=== PATIENT | male | born 1980 | race Caucasian/White ===

== ENCOUNTER 2022-04-07 15:06 | Emergency (ER) | payer OTHER, SELFPAY ==
[2022-04-07 15:07] VITALS: BP 141/105; PULSE 70; RESP 15; TEMP 36.4; O2SAT 93; BMI 25.8
--- NOTE | 2022-04-07 15:34 | CT_ITS ---
STUDY: CT ABDOMEN AND PELVIS WITHOUT CONTRAST ENHANCEMENT 1557 HOURS ON 04/07/2022 REASON FOR EXAM: 41-year-old male with symptomatology of a kidney stone. RADIATION DOSAGE (If Supplied By Facility): CTDIvol = ( 6.04 ) mGy, DLP = ( 321.66 ) mGycm TECHNIQUE: Transaxial images were obtained from the dome of the diaphragm to the symphysis pubis without oral contrast, and without intravenous contrast. Sagittal and coronal images were reconstructed. COMPARISON: None. FINDINGS: The visualized lung bases are unremarkable. The visualized portions of the heart are within normal limits. Normal liver. Normal gallbladder and extrahepatic biliary system; no cholelithiasis or cholecystitis.. Normal spleen. Normal pancreas; no pancreatitis or pancreatic mass lesions.. Normal bilateral adrenal glands. Normal left kidney without hydronephrosis or pyelonephritis. Normal size right kidney with mild right hydronephrosis and mild right hydroureter to the level of a 3 mm diameter calculus in the mid right ureter. No other renal calcification or calculi, or cystic or solid mass lesions. Normal visualized stomach. Normal small intestine. No diverticulitis, colitis, intestinal obstruction. The appendix is visualized and appears normal; no appendicitis.. Normal abdominal aorta. Normal inferior vena cava. Normal retroperitoneum. Partially empty bladder with mild circumferential bladder wall thickening secondary to a 4.9 cm in diameter heterogeneous prostate. Normal abdominal wall. Normal osseous structures. CT/Abdomen/Pelvis without Cont IMPRESSION: 1. Presence of a 3 mm diameter calculus in the mid right ureter with a mild right hydronephrosis and mild proximal right hydroureter. 2. Otherwise, normal kidneys without other calcifications or calculi or cystic or solid mass lesions. 3. Partially empty bladder with mild circumferential bladder wall thickening secondary to a 4.9 cm diameter heterogeneous prostate. 4. Normal liver, spleen, gallbladder, biliary system, and pancreas. 5. No appendicitis, diverticulitis, colitis, or intestinal obstruction. Electronically Signed: Jorge Ramos MD at 17:15 EDT ,
--- NOTE | 2022-04-07 15:35 | EX.ED.DYSGE1 ---
HPI History of Present Illness Chief Complaint: Abd Pain Informant: patient and spouse/S.O. Onset/Context/Timing Onset: Today Narrative Narrative: Sudden right flank pain going through to his abdomen 30 minutes prior to arrival. At a picnic when symptoms started. Nausea vomiting x2. No urinary symptoms. No history of kidney stones. No past medical history. Denies any allergies. Denies history of gastric ulcers or kidney injury. Prior similar symptoms: No PFSH PFSH Medical History no medical history Home Medications cephalexin 500 mg capsule 500 mg PO Q12 #14 caps 04/07/22 [Rx Last Taken Unknown] ibuprofen 600 mg tablet 600 mg PO 4X/DAY PRN Pain Or Fever #20 tabs 04/07/22 [Rx Last Taken Unknown] ondansetron 4 mg disintegrating tablet 4 mg PO Q6H PRN nausea and vomiting #10 tabs 04/07/22 [Rx Last Taken Unknown] oxycodone-acetaminophen 5 mg-325 mg tablet (Percocet) 1 tab PO Q6H PRN pain 3 days #12 tabs 04/07/22 [Rx Last Taken Unknown] Allergy/AdvReac Type Severity Reaction Status Date / Time No Known Allergies Allergy Verified 04/07/22 15:09 Surgical History no surgical history Social History Smoking Status: Never smoker ROS ROS ED Constitutional Constitutional ED: Denies chills, fever(s) or sweats Eyes Eyes: Denies change in vision ENT ENT ED: Denies dysphagia or sore throat Cardiovascular Cardiovascular: Denies chest pain, leg edema, palpitations or racing heartbeat Respiratory/Chest Respiratory/Chest: Denies cough, dyspnea or dyspnea on exertion Gastrointestinal Gastrointestinal: Reports abdominal pain, nausea and vomiting; Denies diarrhea Genitourinary Genitourinary ED: Denies dysuria, hematuria or urinary frequency Musculoskeletal Musculoskeletal: Reports back pain; Denies extremity pain or neck pain Integumentary Denies rash or wounds Neurologic Neurologic: Denies headache(s), paresthesias or weakness EXAM Physical Exam Const Vital Signs: 04/07/22 15:07 04/07/22 17:07 04/07/22 19:19 Temperature 97.6 F L 98.9 F Temperature Source Temporal Pulse Rate 70 66 81 Respiratory Rate 15 18 16 Blood Pressure 141/105 H 145/78 H 134/78 H Blood Pressure Mean 117 100 Pulse Ox 93 97 99 Oxygen Delivery Method Room Air Room Air Positive well nourished and well developed Constitutional Narrative: Uncomfortable laying on left side of the bed but nontoxic General Appearance ED: well developed HEENT Reports moist mucous membranes normocephalic and atraumatic Eyes PERRL, EOMs intact bilaterally and conjunctivae normal General Eye ED: Yes normal appearance of both eyes Neck no lymphadenopathy and supple General: Negative for tenderness Chest Wall Chest: Negative for tenderness Resp normal respiratory effort and normal air movement Effort and Inspection: symmetric chest movement; Negative for respiratory distress Cardio regular rate, regular rhythm and no murmurs Peripheral Pulses: pulses 2+ throughout GI normal to inspection, nondistended, normoactive bowel sounds and non-tender GI Narrative: No guarding or rebound negative Larose's or McBurney's tenderness. Palpation: Negative for guarding or rebound tenderness present Back/Spine no CVA tenderness and no thoracic nor lumbar tenderness Back/Spine Narrative: No rash Extremity normal to inspection General Extremety ED: Negative for edema or tenderness General Extremity: Negative for edema Neuro oriented x3 and no sensory deficits noted Sensorium / Orientation: awake and alert Skin no rashes or lesions noted and no wounds MDM MDM MDM Narrative Medical decision making narrative: Patient uncomfortable laying on side presenting concerns for colic symptoms. Renal stone protocol initiated. He is ordered for Zofran Toradol morphine along with IV fluids. Required multiple doses of pain medicines. After additional morphine and Dilaudid his symptoms were more controlled. Work-up initiated noted 3 mm right mid ureteral stone with hydronephrosis. Creatinine 1.38. Urine noted blood noted 25 leukocytes and 5-10 WBCs with 1+ bacteria had no urinary symptoms. However he does have a history of obstructive stone. Urine culture sent he is given Rocephin. He required additional dose of Dilaudid which took his pain down to 0. I spoke with on-call urologist Dr. Carmichael, discussed with him findings. Recommended prescription for pain medicines along with antibiotics and follow-up with him in the office on Saturday. Strict return precautions discussed. Urine strainer sent home with patient. Meds to bed provided for patient. He remained more comfortable. Patient spouse agrees with plan of care. Lab Data Attestation: I reviewed the patient's lab results. Labs: Laboratory Results - last 24 hr 04/07/22 04/07/22 04/07/22 15:30 15:30 17:05 WBC 6.6 RBC 5.34 Hgb 15.6 Hct 46.8 MCV 87.6 MCH 29.2 MCHC 33.3 RDW Std Deviation 40.6 RDW Coeff of Yenni 12.7 Plt Count 248 MPV 10.6 Immature Gran % (Auto) 0.200 Neut % (Auto) 50.3 Lymph % (Auto) 35.4 [place] % (Auto) 8.9 Eos % (Auto) 4.1 Baso % (Auto) 1.1 H Absolute Neuts (auto) 3.3 Absolute Lymphs (auto) 2.32 Nucleated RBC % 0 Sodium 139 Potassium 3.5 Chloride 107 Carbon Dioxide 28.0 Anion Gap 4 L BUN 19 H Creatinine 1.38 H Estim Creat Clear Calc 65.20 Est GFR (MDRD) Af Amer 73 Est GFR (MDRD) Non-Af 60 BUN/Creatinine Ratio 13.8 Glucose 103 Calcium 9.2 Urine Color Yellow Urine Clarity Cloudy Urine pH 6.0 Ur Specific [place] 1.025 Urine Protein 100 H Urine Glucose (UA) Normal Urine Ketones 50 H Urine Occult Blood 250 H Urine Nitrite Negative Urine Bilirubin Negative Urine Urobilinogen 1 H Ur Leukocyte Esterase 25 H Urine RBC > 100 SEEN Urine WBC 5-10 SEEN Ur Squamous Epith Cells 0-5 SEEN Urine Bacteria 1+ Urine Mucus 3+ Radiography Diagnostic Testing: Clinical Impression(s) from Imaging Studies Abdomen/Pelvis CT 04/07/22 15:34 IMPRESSION: 1. Presence of a 3 mm diameter calculus in the mid right ureter with a mild right hydronephrosis and mild proximal right hydroureter. 2. Otherwise, normal kidneys without other calcifications or calculi or cystic or solid mass lesions. 3. Partially empty bladder with mild circumferential bladder wall thickening secondary to a 4.9 cm diameter heterogeneous prostate. 4. Normal liver, spleen, gallbladder, biliary system, and pancreas. 5. No appendicitis, diverticulitis, colitis, or intestinal obstruction. Electronically Signed: Jorge Ramso MD at 17:15 EDT , Discharge Plan Triage Chief Complaint: Abd Pain ED Provider: Guanako Zhu Dx/Rx/DC Orders Clinical Impression: Kidney stone on right side, Acute UTI, Hematuria, Renal colic on right side Instructions: Understanding Kidney Stones, ED Kidney Stone w/ Colic Prescriptions: New oxycodone-acetaminophen [Percocet] 5-325 mg tablet 1 tab PO Q6H PRN (Reason: pain) 3 Days Qty: 12 0RF cephalexin [cephalexin] 500 mg capsule 500 mg PO Q12 Qty: 14 0RF ibuprofen 600 mg tablet 600 mg PO 4X/DAY PRN (Reason: Pain Or Fever) Qty: 20 0RF ondansetron 4 mg tablet,disintegrating 4 mg PO Q6H PRN (Reason: nausea and vomiting) Qty: 10 0RF Primary Care Provider: Care Physician,No Primary Referrals: Eriberto Carmichael MD [Med Staff - Active Staff] - 2 Days Care Physician,No Primary [Primary Care Provider] - Activity Restrictions/Additional Instructions: 3 mm mid ureteral stone on the right side. Urine with mild infection culture sent take antibiotic as prescribed. Take nausea and pain medicines as needed. Return if any worsening symptoms otherwise follow-up with Dr. Carmichael on saturday. Strain your urine. Disposition Disposition: Home, Self Care Discharge Date/Time: 04/07/22 19:56
[2022-04-07] MEDS: Ondansetron 4 MG/2 ML Vial IV (15:39)
[2022-04-07] MEDS: Morphine 4 MG/ML Syringe IV ×2 (15:39→16:24)
[2022-04-07] MEDS: Ketorolac 15 MG/ML Vial IV (15:40)
[2022-04-07] MEDS: 0.9% Normal Saline 1,000 ML 250 ML IV (15:41)
[2022-04-07 15:55] LABS: Absolute Lymphocyte Count 2.32 X10^3/uL (0.83-4.51); Absolute Neutrophil Count 3.3 X10^3/uL (2.0-7.7); Basophil# 0.07 X10^3/uL; Basophil% 1.1 % (0-1); Eosinophil# 0.27 X10^3/uL; Eosinophils% 4.1 % (0-5); Hematocrit 46.8 % (40-54); Hemoglobin 15.6 g/dL (13.0-16.5); Lymphocyte # 2.32 X10^3/ul (0.83-4.51); Lymphocyte % 35.4 % (19-41); Mean Corp Hgb Conc 33.3 g/dL (32-36); Mean Corpuscular Hgb 29.2 pg (27.0-32.0); Mean Corpuscular Volume 87.6 fL (80-94); Mean Platelet Vol. 10.6 fl (6.2-12.0); Monocyte# 0.58 X10^3/uL; Monocyte% 8.9 % (0-10); NRBC Flagged by Analyzer 0 % (0-5); Neutrophil % 50.3 % (47-70); Platelet Count 248 K/mm3 (150-450); RBC Distribution Width CV 12.7 % (11.6-14.6); RBC Distribution Width SD 40.6 fl (35.1-43.9); Red Blood Count 5.34 M/mm3 (4.6-6.2); White Blood Count 6.6 K/mm3 (4.4-11.0)
[2022-04-07 16:11] LABS: Anion Gap 4 (5-15); BUN 19 mg/dL (7-18); BUN/Creat Ratio 13.8 RATIO (10-20); Calcium,Total 9.2 mg/dL (8.5-10.1); Chloride 107 mmol/L (98-107); Creatinine, Serum 1.38 mg/dL (0.70-1.30); EST Glomerular Filtration Rate 60 mL/min (>60); Est Glom Filt Rate - Afr Amer 73 mL/min (>60); Glucose 103 mg/dL (74-106); Potassium 3.5 mmol/L (3.5-5.1); Sodium Level 139 mmol/L (136-145)
[2022-04-07] MEDS: HYDROmorphone 1 MG/ML Syringe IV ×2 (16:47→17:59)
[2022-04-07 17:07] VITALS: BP 145/78; PULSE 66; RESP 18; O2SAT 97
[2022-04-07 17:16] LABS: Color, Urine Yellow (Yellow); Glucose, Dipstick Normal (Normal); Ketone-Dipstick 50 mg/dl (Negative); Leukocyte Esterase-Dipstick 25 /ul (Negative); Nitrite-Dipstick Negative (Negative); Occult Blood-Urine 250 /ul (Negative); Protein-Dipstick 100 mg/dl (Negative); Specific Gravity, Urine 1.025 (1.002-1.030); Urine Bilirubin Dipstick Negative (Negative); Urine Clarity Cloudy (Clear); Urine Urobilinogen 1 mg/dl (Normal)
[2022-04-07 17:25] LABS: White Blood Cells 5-10 SEEN /hpf (0-5)
[2022-04-07 17:26] LABS: Bacteria 1+ /hpf (None Seen); Red Blood Cells-Urine > 100 SEEN /hpf (0-5); Squamous Epithelial Cells - UA 0-5 SEEN /hpf (0-5)
[2022-04-07 17:27] LABS: Mucous, Urine 3+ /hpf (<or=2+)
[2022-04-07] MEDS: Ceftriaxone 1 GM/50 ML BAG IV (18:04)
[2022-04-07 19:19] VITALS: BP 134/78; PULSE 81; RESP 16; TEMP 37.2; O2SAT 99
== END 2022-04-07 19:56 | disposition home or self-care (01) ==
PROVIDERS: Emergency Provider Emergency Medicine; Visit Provider Emergency Medicine
DX: N20.0 Calculus of kidney (principal); N39.0 Urinary tract infection, site not specified; R11.2 Nausea with vomiting, unspecified; R30.0 Dysuria
CPT/HCPCS: 74176; 80048; 81001; 85025; 87086; 96365; 96366; 96375; 96376; 99283; J7030; A4216; J2405